=== PATIENT | male | born 1985 | race African-American/Black ===

== ENCOUNTER 2021-09-20 19:18 | Emergency (ER) | payer SELFPAY ==
[~2021-09-20] VITALS: Ht 165.1 cm; Wt 97.0 kg
[2021-09-20 19:19] VITALS: BP 176/96
== END 2021-09-21 02:38 | disposition left against medical advice (07) ==
LOC: ER 19:18
DX: Z53.21 Procedure and treatment not carried out due to patient leaving prior to being seen by health care provider (principal); I49.9 Cardiac arrhythmia, unspecified
CPT/HCPCS: 93005